=== PATIENT | male | born 1960 | race Caucasian/White ===

== ENCOUNTER 2018-10-16 08:00 | Emergency (ER) | payer MEDICAID, OTHER ==
[2018-10-16] VITALS (7 sets, daily range): BP systolic 116–154; BP diastolic 83–104
[~2018-10-16] VITALS: Ht 180.3 cm; Wt 73.0 kg
[~2018-10-16 08:00] MED LIST: BUPR100T4 PO; CLON0.1T PO; OLAN2.5T3 PO; QUET25TA PO
--- NOTE | 2018-10-16 08:10 | NUR ---
VIVIENNE RA 37 resp distress at 0700 trach - vent dep possible aspiration, large amount of fecal like vomiting upon arrival , fever h/o C-diff. PT IS AAOX0, WITHDRAWS TO PAIN, HOOKED TO MONITOR, EKG DONE, KEPT RESTED AND COMFORTABLE. SEEN AND EXAMINED BY DR. ESCOBAR.
--- NOTE | 2018-10-16 08:15 | NUR ---
LABS DRAWNED VIA PICC LINE AND STOOL SPECIMEN COLLECTED AND SENT TO LAB. AWAITING RESULTS.
--- NOTE | 2018-10-16 08:20 | NUR ---
RT Pt received trach'd and vent dependant for aspiration. [facility] MD order. Vent plugged into red outlet w ambubag at hob. Alarms arre set and audible. Conduit Reamer Operator done pt sx'd. No respiratory distress noted @ this time.
--- NOTE | 2018-10-16 08:20 | NUR ---
RADIOLOGY AT BEDSIDE FOR XRAY.
[2018-10-16] MEDS ORDERED: IV NS 0.9% 1,000 ML BAG IV ONE (08:30)
[2018-10-16 08:31] LABS: BASOPHILS # (AUTO) 0.1 /CMM (0.0-0.2); BASOPHILS % (AUTO) 0.4 % (0.0-2.0); HEMATOCRIT 33 % (39-51); HEMOGLOBIN 10.4 g/dL (13.5-17.5); LYMPHOCYTES # (AUTO) 1.2 /CMM (0.8-4.8); LYMPHOCYTES % (AUTO) 5.4 % (20.0-44.0); MEAN CORPUSCULAR HGB CONC 31 g/dl (31.0-36.0); MEAN CORPUSCULAR VOLUME 87 fL (80-96); MONOCYTES # (AUTO) 1.2 /CMM (0.1-1.30); MONOCYTES % (AUTO) 5.6 % (2.0-12.0); NEUTROPHILS # (AUTO) 19.2 /CMM (1.8-8.9); NEUTROPHILS % (AUTO) 88.6 % (43.0-81.0); PLATELET COUNT (AUTO) 398 /CMM (150-450); RED BLOOD CELL COUNT(AUTO) 3.83 MIL/uL (4.5-6.0); WHITE BLOOD COUNT (AUTO) 21.7 K/uL (4.3-11.0)
[2018-10-16 08:40] LABS: CALCIUM, SERUM 8.6 mg/dL (8.5-10.1); CARBON DIOXIDE 27 mmol/L (21-32); CHLORIDE 105 mmol/L (98-107); CREATININE 0.7 mg/dL (0.6-1.3); GLUCOSE 160 mg/dL (74-106); POTASSIUM 3.9 mmol/L (3.5-5.1); SODIUM SERUM 142 mmol/L (136-145); UREA NITROGEN, BLOOD 23 mg/dL (7-18)
[2018-10-16] MEDS ORDERED: CT SWABBABLE VALVE TRANS SET 1 EA INFUS.SET MC ONE (08:45)
[2018-10-16] MEDS ORDERED: IOHEXOL-300 100 ML VIAL IV ONE (08:45)
[2018-10-16] MEDS ORDERED: IV NS 0.9% 250 ML IV ONE (08:45)
[2018-10-16 08:46] LABS: ALANINE AMINOTRANSFERASE 53 U/L (12-78); ALBUMIN 2.4 g/dL (3.4-5.0); ALKALINE PHOSPHATASE 109 U/L (46-116); ASPARTATE AMINOTRANSFERASE 47 U/L (15-37); BILIRUBIN,DIRECT 0.2 mg/dL (0.0-0.2); BILIRUBIN,TOTAL 0.6 mg/dL (0.2-1.0)
[2018-10-16] MEDS ORDERED: VANCOMYCIN 1 GM in IV D5W 250 ML IV ONE (09:00)
[2018-10-16] MEDS ORDERED: PIPERACILLIN /TAZOBACTAM 3.375 G in IV D5W 50 ML IV ONE (09:00)
[2018-10-16 09:06] LABS: APPEARANCE,URINE TURBID (CLEAR); BILIRUBIN,URINE NEGATIVE (NEGATIVE); BLOOD, URINE 3+ Ery/uL (NEGATIVE); COLOR,URINE ORANGE (YELLOW); KETONES,URINE NEGATIVE (NEGATIVE); LEUKOCYTE ESTERASE ,URINE NEGATIVE (NEGATIVE); NITRITE, URINE POSITIVE (NEGATIVE); PROTEIN,URINE 2+ mg/dl (NEGATIVE); UGLUCOSE NEGATIVE (NEGATIVE); UROBILINOGEN,URINE 0.2 EU/dL (0.2)
[2018-10-16] MEDS ORDERED: ALBU2.5V38 IH ×2 (09:13)
[2018-10-16] MEDS ORDERED: HYDR4TAB57 GT (09:13)
[2018-10-16] MEDS ORDERED: HYDR-4384 GT (09:13)
[2018-10-16] MEDS ORDERED: GUAI100G GT (09:13)
[2018-10-16] MEDS ORDERED: ACET-868 GT (09:13)
[2018-10-16] MEDS ORDERED: DILT30TA14 GT (09:13)
[2018-10-16] MEDS ORDERED: LEVE100S GT (09:13)
--- NOTE | 2018-10-16 09:21 | NUR ---
PT IS WHEELED TO CT SCAN VIA ACLS PROTOCOL.
[2018-10-16 09:24] LABS: BACTERIA,URINE Moderate /HPF (None Seen); RBC,URINE TOO NUMEROUS TO COUN /HPF (0-2); SQUAMOUS EPITHELIAL CELL,UR Few /HPF (None Seen); URINE AMORPHOUS URATE Few /HPF (None Seen)
[2018-10-16] MEDS ORDERED: ACETAMINOPHEN 650 MG/SUPP.RECT RC ONE ×2 (09:30→09:44)
--- NOTE | 2018-10-16 10:10 | NUR ---
SUCTIONED THE G TUBE COLLECTED 800ML OF YELLOWISH SUBSTANCE.
[2018-10-16 10:12] LABS: ABG BASE EXCESS 3.7 mmol/L; ABG PCO2 34.2 mmHg (35.0-45.0); AaDO2 23.2 mmHg; COHb 0.8 % (0.5-1.5); MetHb 0.1 % (0.0-1.5); O2Hb 98.1 % (94.0-97.0); PEEP,BG 5 cm H2O; SITE, ABG Right Radial; VT, ABG 450 mL
--- NOTE | 2018-10-16 11:57 | NUR ---
PAGED CASUALTY CLAIM ADJUSTER SURGEON - DR. GEM HARRY
--- NOTE | 2018-10-16 12:40 | NUR ---
PAGED DR. GEM HARRY AGAIN
--- NOTE | 2018-10-16 13:06 | NUR ---
PAGED DR. GEM HARRY FOR THIRD TIME
--- NOTE | 2018-10-16 14:01 | NUR ---
NGT INSERTED AT THE R NOSTRIL 18FR 40 AT THE TIP.
--- NOTE | 2018-10-16 16:17 | NUR ---
DAYNE FROM [facility] CALLED WITH TRANSFER INFORMATION - PATIENT WILL BE TRANSFERRED TO [facility] ROOM [address] EN ROUTE WITH ETA OF 0671 NUMBER FOR REPORT -
--- NOTE | 2018-10-16 18:07 | NUR ---
report given to YAW bustamante for bubba.
--- NOTE | 2018-10-16 19:38 | NUR ---
REPORT GIVEN TO YAW RADER FOR HUSSEIN. AWAITING AMBULANCE FOR TRANSFER.
--- NOTE | 2018-10-16 20:13 | NUR ---
[facility] WITH ETA OF 0100 CONFIRMED BY DAYNE ([facility] HABILITATION WORKER) - TRIP #[id number]
--- NOTE | 2018-10-16 20:16 | NUR ---
ANY FURTHER QUESTIONS FOR REGAL - CALL [place]
--- NOTE | 2018-10-16 22:04 | NUR ---
Patient is resting comfortably in bed with eyes closed. VSS.
--- NOTE | 2018-10-17 00:13 | NUR ---
REMI FROM [facility] CALLED AND GAVE UPDATED ETA: 020
[2018-10-17 01:16] VITALS: BP 115/83
== END 2018-10-17 02:22 ==
LOC: ER 08:03
DX: R06.02 Shortness of breath (principal); K56.7 Ileus, unspecified; D72.829 Elevated white blood cell count, unspecified; G93.41 Metabolic encephalopathy; A04.72 Enterocolitis due to Clostridium difficile, not specified as recurrent; R56.9 Unspecified convulsions; R00.0 Tachycardia, unspecified; Z93.1 Gastrostomy status; Z93.0 Tracheostomy status; Z88.9 Allergy status to unspecified drugs, medicaments and biological substances; Z88.8 Allergy status to other drugs, medicaments and biological substances
CPT/HCPCS: 31720; 36415; 36600 ×2; 71045; 71260; 74177; 80048; 80076; 81001; 82803; 82962; 83605; 84484; 85025; 85730; 87040 ×2; 87070; 87081; 87086; 87804 ×2; 93005; 94640; 96365; 96368; 99082; 99285; A4606; J2543; J3370; J7030; J7050 ×2; J7060 ×2; Q9967; Z7610; 81000-TC; 87186-TC; 87400